=== PATIENT | female | born 1980 | race Caucasian/White ===

== ENCOUNTER → 2016-11-10 | Outpatient (CLI) | payer BC ==
[~2016-11-10] MED LIST: ACET-1256 PO; BND25X PO; CHLO-274 PO; CLC100 PO; DICY10CA55 PO; FEXO1TAB46 PO; FLUT0.0529 NAE; GABA1CAP PO; GUAI1TAB55 PO; HYDR25SU20 PR; IBUP-1427 PO; IPRA0.032 NAE; LAMO100T PO; MELA1TAB3 PO; MULTTAB58 PO; ONDA4TAB65 PO; SENN-12 PO; SERT1TAB71 PO; TRIA0.1C20 TOP
--- NOTE | 2016-11-10 16:30 | DIAGNOSTIC IMAGING REPORT ---
KUB HISTORY: R53.83 [id number] Abdominal [id number] Chronic constipation COMPARISON: None. FINDINGS: The bowel gas pattern is unremarkable. There are no dilated loops of small bowel to suggest an obstruction. No renal calculi. No ureteral calculi. No pneumoperitoneum or pneumatosis. Large amount of well-formed stool seen throughout the colon. Cholecystectomy. IMPRESSION: No evidence of bowel obstruction. Large amount of well-formed stool seen throughout the colon. Electronically signed by: Steve Davis M.D. 11/10/2016 4:29 PM Dictated Date/Time: 11/10/2016 4:01 PM
[2016-11-10 16:31] LABS: HEMATOCRIT 37.5 % (37-47); MEAN CELL VOLUME 86.4 fL (80-100); MEAN CORPUSCULAR HEMOGLOBIN 29.5 pg (25-34); MEAN CORPUSCULAR HGB CONC 34.1 g/dl (32-36); MEAN PLATELET VOLUME 9.8 fL (7.4-10.4); PLATELET COUNT 337 K/uL (130-400); RED BLOOD COUNT 4.34 M/uL (4.2-5.4); WHITE BLOOD COUNT 5.91 K/uL (4.8-10.8)
[2016-11-10 17:07] LABS: THYROID STIMULATING HORMONE 2.21 uIu/ml (0.300-4.500)
== END | disposition home or self-care (01) ==
LOC: C.RAD1850 15:36
PROVIDERS: ATTEND Registered Nurse
DX: K59.09 Other constipation (principal); R53.83 Other fatigue; R14.0 Abdominal distension (gaseous)

== ENCOUNTER → 2017-03-16 | Outpatient (CLI) | payer BC | END | disposition home or self-care (01) | LOC: C.PATHSPEC 17:26 | PROVIDERS: ATTEND Plastic Surgery | DX: L98.9 Disorder of the skin and subcutaneous tissue, unspecified (principal) ==